=== PATIENT | male | born 1995 | race Caucasian/White ===

== ENCOUNTER 2018-06-18 16:20 | Inpatient (IN) ==
[2018-06-18] MEDS ORDERED: cloNIDine 0.1 MG TABLET PO PRN (17:19)
[2018-06-18] MEDS ORDERED: rOPINIRole 1 MG TABLET PO PRN (17:19)
[2018-06-18] MEDS ORDERED: METHOCARBAMOL 750 MG TABLET PO PRN (17:19)
[2018-06-18] MEDS ORDERED: DICYCLOMINE 10 MG CAPSULE PO PRN (17:19)
[2018-06-18] MEDS ORDERED: HydrOXYzine PAMOATE 25 MG CAPSULE PO PRN (17:19)
[2018-06-18] MEDS ORDERED: ONDANSETRON 4 MG/2 ML VIAL IV PRN (17:25)
[2018-06-18] MEDS ORDERED: chlordiazePOXIDE 25 MG CAPSULE PO SCH (17:30)
[2018-06-18] MEDS ORDERED: THIAMINE INJ 100 MG, FOLIC ACID INJ 1 MG, MULTIVITAMIN INJ 10 ML in SODIUM CHLORIDE 0.9... IV ONE (18:00)
[2018-06-18] MEDS: chlordiazePOXIDE 25 MG CAPSULE PO SCH (19:35)
[2018-06-18] MEDS: NICOTINE 21 MG/24 HR PATCH TRANSDERM PRN (19:38)
[2018-06-18 20:14] LABS: Basophils # 0.1 10*3/uL (0.0-0.2); Basophils % 0.6 % (0.0-0.8); Eosinophils # 0.2 10*3/uL (0.0-0.87); Eosinophils % 2.2 % (0.00-10.9); Hematocrit 44.1 VOL% (42.0-52.0); Hemoglobin 14.2 GM/DL (14.0-18.0); Immature Granulocytes % 0.5 %; Immature Granulocytes Absolute 0.04 #; Lymphocytes # 3.4 10*3/uL (1.4-4.0); Lymphocytes % 38.1 % (21.2-54.2); Mean Corpuscular HGB Conc 32.2 GM/DL (32-36); Mean Corpuscular Volume 90.9 FL (87-102); Mean Platelet Volume 10.1 FL (9.6-12.0); Monocytes % 9.3 % (1.7-12.7); Neutrophils % 49.3 % (38.7-73.9); Platelet Count 479 T/CUMM (130-400); Red Blood Count 4.85 MC/CUMM (3.8-5.5); Red Cell Distribution Width 13.2 % (9.3-17.3); White Blood Count 8.8 T/CUMM (4-12)
[2018-06-18 20:20] LABS: PT Patient Result 11.1 SECS
[2018-06-18 20:40] LABS: Alanine Aminotransferase 44 U/L (16-61); Albumin 3.6 G/DL (3.4-5.0); Alkaline Phosphatase 63 U/L (45-117); Amylase 69 U/L (25-115); Aspartate Amino Transferase 25 U/L (0-37); Blood Urea Nitrogen 10 MG/DL (7-18); Calcium 9.1 MG/DL (8.5-10.1); Glucose 94 MG/DL (74-106); Osmolality,Calculated 275.5 MOS/KG (273-304); Total Protein 7.8 G/DL (6.4-8.3)
[2018-06-19] MEDS: chlordiazePOXIDE 25 MG CAPSULE PO SCH ×4 (02:17→20:09)
[2018-06-19 10:23] LABS: Apearance,Urine CLEAR (Clear); Bilirubin,Urine Negative (Negative); Blood, Urine Negative (Negative); Glucose,Urine (UA) Negative (Negative); Ketones,Urine Negative (Negative); Mucus,Urine Occasional /LPF (Occasional); Nitrite,Urine Negative (Negative); Protein,Urine Negative; RBC,Urine <1 /HPF (0-4); Urine Color Yellow (Yellow); Urine Specific Gravity 1.013 (1.001-1.035); Urine Urobilinogen < 2.0 EU/DL (0.2-1.0)
[2018-06-19 10:27] LABS: Barbiturates Screen,Urine Negative (Negative); Benzodiazepines Screen,Urine Positive (Negative); Cannabinoid Screen,Urine Negative (Negative); Opiate Screen,Urine Negative (Negative); Phencyclidine Screen,Urine Negative (Negative)
[2018-06-19] MEDS: NICOTINE 21 MG/24 HR PATCH TRANSDERM PRN (20:09)
[2018-06-20] MEDS: chlordiazePOXIDE 25 MG CAPSULE PO SCH ×3 (04:14→21:29)
[2018-06-20] MEDS: NICOTINE 21 MG/24 HR PATCH TRANSDERM PRN (14:04)
[2018-06-21] MEDS: chlordiazePOXIDE 25 MG CAPSULE PO SCH (03:36)
[2018-06-21 07:51] VITALS: BP 93/43
== END 2018-06-21 09:16 | disposition home or self-care (01) | DRG 897 ==
LOC: SUATTDRO 17:17 → N.4E 17:17
PROVIDERS: ADMIT Hospitalist; ATTEND Emergency Medicine